=== PATIENT | male | born 1975 | race Caucasian/White ===

== ENCOUNTER 2022-08-15 11:35 | Day surgery (SDC) | payer OTHER, SELFPAY ==
[2022-08-12 11:21] VITALS: BMI 28.2
--- NOTE | 2022-08-14 13:15 | HO.ANESPROP2 ---
HPI - Anesthesia Eval Consult details Narrative: 46yo M for Colonoscopy PMFSH Active Problems Active Problems: All Active Problems (Updated 04/16/22 @ 12:48 by Moni Vallejo PA-C) Family history of colonic polyps (Acute) Encounter for screening colonoscopy (Acute) Family History Family History Mother Colon polyp Father Heart valve disease Bladder cancer Paternal Grandfather Shingles Heart disease Paternal Grandmother Heart disease Surgical History Surgical History (Updated 08/20/22 @ 08:27 by Miley Alcantar) Hx laparoscopic cholecystectomy Hx of colonoscopy Hx of tonsillectomy Hx of total thyroidectomy Social History Social History (Updated 04/16/22 @ 12:24 by Moni Vallejo PA-C) Household Members: Family Household Members Other:: 2 kids Alcohol intake: current Alcohol intake frequency: 0-2 drinks per day Patient Tobacco Use Status: Never used Tobacco Use of substances other than those prescribed or required for medical reasons: No Are you DNR?: No Advance Directives: No Advance Directives Information Provided: Yes Recently lost weight without trying: No Nutrition Risks: No Nutritional Risk Current occupational status: employed Current occupation: programmer analyst consultant- Meds Allergies Allergy/AdvReac Type Severity Reaction Status Date / Time bee pollen Allergy Severe Hypotension Verified 08/15/22 11:44 Iodinated Contrast Media AdvReac Vomiting Verified 08/15/22 13:11 [Contrast Dye] Home Medications Medication Instructions Recorded Confirmed Last Taken Type buspirone 30 mg tablet 30 mg PO BID 04/16/22 08/15/22 08/15/22 06:00 History lorazepam 0.5 mg tablet 0.5 mg PO BID PRN Anxiety 04/16/22 08/15/22 Unknown History tadalafil 20 mg tablet 20 mg PO DAILY PRN impotence 04/16/22 08/15/22 Unknown History epinephrine 0.3 mg/0.3 mL IM NEEDED allergies 08/15/22 08/15/22 Unknown History injection, auto-injector Exam Exam Date and Time: August 14, 2022 1315 Height,Weight and Vital Signs: Height 5 ft 6 in Weight 79.379 kg Assessment and Plan Assessment Anesthesia Assessment: Chart Reviewed
[2022-08-15 11:46] VITALS: BMI 25.0
[2022-08-15 11:56] VITALS: BP 105/66; PULSE 75; RESP 16; TEMP 36.2; O2SAT 99
[2022-08-15] MEDS: Lactated Ringers 1,000 ML 100 ML IVCONT (12:06)
--- NOTE | 2022-08-15 12:17 | MHC.SHP ---
Pre-Procedural Eval Section A Date of Service: 08/15/22 The patient is an INPATIENT: No The History & Physical has been completed within 30 days and I have reviewed it.: No Section B Chief Complaint: screening,fm hx of polyps Details of Present Illness: colon cancer screening, family history of colon polyps Relevant Family History (Specify if Yes): Yes Relevant Social History: None Present Medications: see Short Stay Collaborative assessment Medical History: No relevant PMH History of Previous Operations: Relevant previous surgery/procedure and date(s) (Hx laparoscopic cholecystectomy Hx of tonsillectomy Hx of total thyroidectomy) Allergies: Allergies Allergy/AdvReac Type Severity Reaction Status Date / Time bee pollen Allergy Severe Hypotension Verified 08/15/22 11:44 Review of Systems Sugical H&P ROS: Negative: Constitution, Cardiovascular, Respiratory and Gastrointestinal Exam Surgical H&P Exam: Normal: Heart, Normal: Lungs, Normal: Extremities and Normal: Abdomen Plan Diagnosis/Plan: Unchanged I have reviewed the history and physical and performed a pertinent physical examination on my patient. No changes have occurred unless specified. Time Spent With Patient Time: Total time managing care of this patient today ____ minutes.
--- NOTE | 2022-08-15 12:53 | W.PM.OPN ---
Operative Note Operative Note Date of Service: 08/15/22 Narrative: COLONOSCOPY TILL CECUM WITH BIOPSIES Indication:? Colon cancer screening Endoscopist:? Kaleb Smyth MD Anesthesia Provider:?Dr Weston Anesthesia type:?MAC Consent: Indications for the procedure and potential complications of bleeding, perforation, reaction to medications and missed diagnosis were discussed with the patient and informed consent was obtained. Instrument: Olympus PCF H 190 L variable stiffness pediatric colonoscope Monitoring: Vital signs and clinical assessment, intermittent blood pressure monitoring, continuous EKG monitoring, Pulse oximetry and Carbon Dioxide monitoring were done throughout the procedure. Please see anesthesia flowsheet. Colon withdrawl time was 24 minutes. Procedure: The patient was placed in the left lateral decubitis position and pre-procedure medications were administered. After a digital rectal examination of the ano-rectum, the video colonoscope was inserted into the rectum and advanced through the colon to the cecum. The colonoscope was slowly withdrawn in a retrograde panoramic fashion and the colon mucosa was carefully examined including a retroflexed view of the rectum. Findings and interventions are described below. Procedure Difficulty: Without difficulty Findings: Terminal Ileum: Not evaluated Cecum: Normal Ascending Colon: Normal Transverse Colon: Normal Descending Colon: Normal Sigmoid Colon: A 6-7 mm polyp versus inverted diverticulum - biopised. Moderate diverticulosis Rectum: Normal Ano-rectum: Moderate internal hemorrhoids Colon preparation: Excellent Impression and Post Procedure Diagnosis: Colonoscopy Findings: A 6-7 mm polyp versus inverted diverticulum - biopised. Moderate diverticulosis seen in the sigmoid colon Moderate hemorrhoids on retroflexed exam. Plan: Await pathology results Patient has an appointment on 08/27/22 in the [facility] with [facility]. Repeat Colonoscopy interval based on path results - in 5 years if polyps are adenomatous and 10 years if polyps are hyperplastic. Above findings were reviewed with the patient and colon polyps and diverticulosis handouts were given in the discharge area. Pt reported intermittent rectal bleeding. He was advised to start a fiber supplement (metamucil once daily) and use preparation H. If he continues to have symptoms despite above measures, he can be prescribed hydrocortisone cream for hemorrhoids.
--- NOTE | 2022-08-15 13:19 | HO.ANESPROP2 ---
[facility] Active Problems Active Problems: All Active Problems (Updated 04/16/22 @ 12:48 by Moni Vallejo PA-C) Family history of colonic polyps (Acute) Encounter for screening colonoscopy (Acute) Family History Family History Mother Colon polyp Father Heart valve disease Bladder cancer Paternal Grandfather Shingles Heart disease Paternal Grandmother Heart disease Family history of problems with anesthesia: No Surgical History Surgical History Hx laparoscopic cholecystectomy Hx of tonsillectomy Hx of total thyroidectomy History of Problems with Anesthesia: No Social History Social History (Updated 04/16/22 @ 12:24 by Moni Vallejo PA-C) Household Members: Family Household Members Other:: 2 kids Alcohol intake: current Alcohol intake frequency: 0-2 drinks per day Patient Tobacco Use Status: Never used Tobacco Use of substances other than those prescribed or required for medical reasons: No Are you DNR?: No Advance Directives: No Advance Directives Information Provided: Yes Recently lost weight without trying: No Nutrition Risks: No Nutritional Risk Current occupational status: employed Current occupation: research programmer- [employer] Allergies Allergy/AdvReac Type Severity Reaction Status Date / Time bee pollen Allergy Severe Hypotension Verified 08/15/22 11:44 Iodinated Contrast Media AdvReac Vomiting Verified 08/15/22 13:11 [Contrast Dye] Active Medications: Current Medications Lactated Ringer's (Lr) 1,000 mls @ 100 mls/hr IVCONT .Q10H ZAY Last Admin: 08/15/22 12:06 Dose: 100 mls/hr Home Medications Medication Instructions Recorded Confirmed Last Taken Type buspirone 30 mg tablet 30 mg PO BID 04/16/22 08/15/22 08/15/22 06:00 History lorazepam 0.5 mg tablet 0.5 mg PO BID PRN Anxiety 04/16/22 08/15/22 Unknown History tadalafil 20 mg tablet 20 mg PO DAILY PRN impotence 04/16/22 08/15/22 Unknown History epinephrine 0.3 mg/0.3 mL IM NEEDED allergies 08/15/22 08/15/22 Unknown History injection, auto-injector Exam Exam Date and Time: August 15, 2022 1319 Height,Weight and Vital Signs: Height 5 ft 6 in Weight 70.307 kg Last Vital Signs Temp 97.2 F 08/15/22 11:56 Pulse 75 08/15/22 11:56 Resp 16 08/15/22 11:56 BP 105/66 08/15/22 11:56 Pulse Ox 99 08/15/22 11:56 O2 Del Method Room Air 08/15/22 11:56 Airway Mallampati Class: II TM Dist: >3cm Neck ROM: Full Loose/Missing/Broken Teeth: No Heart: rr Lungs: cta Assessment and Plan Assessment Anesthesia Assessment: Anesthesia Plan Discussed and Chart Reviewed Final Anesthetic Review Family History of Problems with Anesthesia: No History of Problems with Anesthesia: No NPO: Yes ASA Class: II Final Preanesthetic Review: No Changes in Pt Med Stat, Meds/Allgs Chart Reviewed, Consent Obtained/Reviewed and Anes Risks/Benef Reviewed Patient Risk: Low Procedure Risk: Low Anesthetic Plan Anesthetic Plan: MAC: Disposition: Standard PACU
[2022-08-15 13:47] VITALS: BP 96/53; PULSE 71; RESP 18; TEMP 36.3; O2SAT 99
[2022-08-15 14:02] VITALS: BP 102/60; PULSE 62; RESP 18; TEMP 36.5; O2SAT 100
== END 2022-08-15 14:30 | disposition home or self-care (01) ==
PROVIDERS: PCP Internal Medicine; Visit Provider Internal Medicine Gastroenterology
PROC: 0DJD8ZZ Inspection of Lower Intestinal Tract, Via Natural or Artificial Opening Endoscopic (ICD-10-PCS; CPT 45378; principal; 2022-08-15 12:50)
DX: Z12.11 Encounter for screening for malignant neoplasm of colon (principal); Z83.71 Family history of colonic polyps; K63.5 Polyp of colon; K57.30 Diverticulosis of large intestine without perforation or abscess without bleeding; K64.8 Other hemorrhoids; E89.0 Postprocedural hypothyroidism; Z79.899 Other long term (current) drug therapy; Z90.49 Acquired absence of other specified parts of digestive tract
CPT/HCPCS: 45380; 88305

== ENCOUNTER → 2022-08-27 10:58 | Outpatient (BNVA) | payer OTHER, SELFPAY | PROVIDERS: PCP Internal Medicine; Visit Provider Physician Assistant | DX: Z13.89 Encounter for screening for other disorder (principal) ==